=== PATIENT | male | born 1950 | race Caucasian/White ===

== ENCOUNTER → 2024-11-19 | Outpatient (CLI) | payer OTHER | END | disposition home or self-care (01) | LOC: RAD 10:48 | PROVIDERS: ATTEND Family Medicine | DX: M48.061 Spinal stenosis, lumbar region without neurogenic claudication (principal); M43.26 Fusion of spine, lumbar region; M41.86 Other forms of scoliosis, lumbar region; M25.78 Osteophyte, vertebrae; M46.1 Sacroiliitis, not elsewhere classified; M54.16 Radiculopathy, lumbar region; M25.552 Pain in left hip; Z98.890 Other specified postprocedural states ==